=== PATIENT | female | born 1955 | race Two or more races ===

== ENCOUNTER 2021-04-29 17:11 | Emergency (ER) | payer MEDICARE, OTHER ==
[~2021-04-29] VITALS: Ht 154.9 cm; Wt 64.9 kg
[~2021-04-29 17:11] MED LIST: ATOR40TA PO; Aspir 8181 MG PO; CYCL10 PO; DIABETES MED; DIPH25; Flagyl500 MG PO; GABA400 PO; HTN MED; HYDACE5 PO; IBUP600 PO; IBUP800 PO; Levaquin750 MG PO; Loratadine10 MG PO; METF500 PO; MIRT30 PO; NAPR550 PO; PIOG30 PO; PROM25 PO; Percocet 5-3251 EACH PO; RXCYCL10 PO; RXHYDACE PO; RXNAPNA550 PO; SEROQUEL; TRAZ100; TRAZ150T57 PO; TRAZ50; TRAZADONE; WELLBUTRIN; XARELTO15 MG PO; ZESTRIL40 M1 PO; [UNRECOGNIZED DRUG - REMARK]
[2021-04-29 18:17] LABS: BASOPHILS ABSOLUTE AUTO 0.04 K/mm3 (0.00-0.23); BASOPHILS PERCENT AUTO 1 % (0-2); EOSINOPHILS PERCENT AUTO 5 % (0-6); Hematocrit 37.3 % (33.0-51.0); Hemoglobin 12.7 g/dL (11.5-16.0); IMMATURE GRAN ABSOLUTE AUTO 0.01 K/mm3 (0.00-0.10); IMMATURE GRAN PERCENT AUTO 0 % (0-1); LYMPHOCYTES ABSOLUTE AUTO 2.48 K/mm3 (0.84-5.20); LYMPHOCYTES PERCENT AUTO 32 % (21-46); MONOCYTES ABSOLUTE AUTO 0.65 K/mm3 (0.16-1.47); MONOCYTES PERCENT AUTO 8 % (4-13); Mean Corpuscular HGB 30.2 pg (26.0-34.0); Mean Corpuscular Volume 89 fL (80-100); Mean Platelet Volume 8.9 fL (9.1-12.4); NEUTROPHILS ABSOLUTE AUTO 4.13 K/mm3 (1.96-9.15); NEUTROPHILS PERCENT AUTO 54 % (41-73); Platelet Count 234 K/mm3 (150-400); RDW Coefficient Variation 13.3 % (11.7-14.2); RDW Standard Deviation 43.6 fL (35.1-46.3); White Blood Cell Count 7.71 K/mm3 (4.00-11.30)
[2021-04-29 18:40] LABS: Bilirubin, Total 0.4 mg/dL (0.1-1.0); Bun/Creatinine Ratio 37.3 (12.0-20.0); Calcium, Blood 10.1 mg/dL (8.5-10.1); Creatinine, Blood 0.97 mg/dL (0.40-1.00); Globulin, Blood 4.1 g/dL (2.2-4.0); Potassium, Blood 5.3 mmol/L (3.5-5.5); Total Protein, Blood 8.1 g/dL (6.4-8.2)
[2021-04-29 20:15] LABS: Source, Urine Clean Catch
[2021-04-29 20:18] LABS: Bilirubin, Urine Neg (Neg); Blood, Urine 1+ (Neg); Color, Urine Yellow (P-Yellow); Glucose Qualitative, Urine Neg (Neg); Ketones, Urine Neg (Neg); Leukocyte Esterase, Urine 2+ (Neg); Nitrite, Urine Neg (Neg); Protein, Urine 1+ (Neg); Urobilinogen, Urine NORM (Normal)
[2021-04-29 20:24] LABS: Appearance, Urine Hazy (Clear)
[2021-04-29 20:25] LABS: Red Blood Cells, Urine 0-2 /hpf (0-2)
[2021-04-29 20:26] LABS: Bacteria Many /hpf; Squamous Epithelial Cells Rare /hpf (Few)
[2021-04-30] MEDS ORDERED: SERT50 PO (01:09)
[2021-04-30] MEDS ORDERED: TRAZ50 PO (01:12)
[2021-04-30 01:47] LABS: Influenza A, PCR NEGATIVE (NEGATIVE); Influenza B, PCR NEGATIVE (NEGATIVE); Resp Syncytial Virus, PCR NEGATIVE (NEGATIVE); SARS-Cov-2 (COVID-19) PCR, MMC NEGATIVE (NEGATIVE)
== END 2021-04-30 04:00 | disposition short-term general hospital (02) ==
LOC: ER 17:11
PROVIDERS: Physician Assistant; Student in an Organized Health Care Education/Training Program
DX: K85.90 Acute pancreatitis without necrosis or infection, unspecified (principal); K80.50 Calculus of bile duct without cholangitis or cholecystitis without obstruction; I44.7 Left bundle-branch block, unspecified; K44.9 Diaphragmatic hernia without obstruction or gangrene; K57.30 Diverticulosis of large intestine without perforation or abscess without bleeding; R42 Dizziness and giddiness; E11.9 Type 2 diabetes mellitus without complications; I10 Essential (primary) hypertension; Z79.82 Long term (current) use of aspirin; Z79.84 Long term (current) use of oral hypoglycemic drugs; Z79.899 Other long term (current) drug therapy; Z88.0 Allergy status to penicillin
CPT/HCPCS: 0241U; 36415; 70450; 74177; 80053; 81001; 83690; 85025; 93005; 93010; J0780; J2270; J2405; J2765; J7120; Q9967

== ENCOUNTER 2021-07-22 09:39 | Emergency (ER) | payer MEDICARE, OTHER ==
[~2021-07-22] VITALS: Ht 154.9 cm; Wt 68.0 kg
[~2021-07-22 09:39] MED LIST changes: +SERT50 PO; +TRAZ50 PO
[2021-07-22 10:33] LABS: BASOPHILS ABSOLUTE AUTO 0.06 K/mm3 (0.00-0.23); BASOPHILS PERCENT AUTO 1 % (0-2); EOSINOPHILS ABSOLUTE AUTO 0.44 K/mm3 (0.00-0.68); EOSINOPHILS PERCENT AUTO 5 % (0-6); Hematocrit 32.4 % (33.0-51.0); Hemoglobin 10.8 g/dL (11.5-16.0); IMMATURE GRAN ABSOLUTE AUTO 0.02 K/mm3 (0.00-0.10); IMMATURE GRAN PERCENT AUTO 0 % (0-1); LYMPHOCYTES ABSOLUTE AUTO 1.39 K/mm3 (0.84-5.20); LYMPHOCYTES PERCENT AUTO 17 % (21-46); MONOCYTES ABSOLUTE AUTO 0.78 K/mm3 (0.16-1.47); MONOCYTES PERCENT AUTO 9 % (4-13); Mean Corpuscular HGB 30.4 pg (26.0-34.0); Mean Corpuscular HGB Conc 33.3 g/dL (31.5-36.5); Mean Corpuscular Volume 91 fL (80-100); Mean Platelet Volume 8.7 fL (9.1-12.4); NEUTROPHILS ABSOLUTE AUTO 5.74 K/mm3 (1.96-9.15); NEUTROPHILS PERCENT AUTO 68 % (41-73); Platelet Count 188 K/mm3 (150-400); RDW Standard Deviation 42.6 fL (35.1-46.3); Red Blood Cell Count 3.55 M/mm3 (3.80-5.20); White Blood Cell Count 8.43 K/mm3 (4.00-11.30)
[2021-07-22 10:45] LABS: Source, Urine Clean Catch
[2021-07-22 10:47] LABS: Albumin, Blood 3.4 g/dL (3.4-5.0); Albumin/Globulin Ratio 0.9 (0.8-1.8); Bilirubin, Total 0.4 mg/dL (0.1-1.0); Bun/Creatinine Ratio 19.2 (12.0-20.0); Calcium, Blood 9.2 mg/dL (8.5-10.1); Creatinine, Blood 0.99 mg/dL (0.40-1.00); Globulin, Blood 3.9 g/dL (2.2-4.0); Potassium, Blood 4.6 mmol/L (3.5-5.5); Total Protein, Blood 7.3 g/dL (6.4-8.2)
[2021-07-22 11:25] LABS: Appearance, Urine Hazy (Clear); Bilirubin, Urine Neg (Neg); Blood, Urine 1+ (Neg); Color, Urine Yellow (P-Yellow); Glucose Qualitative, Urine Neg (Neg); Ketones, Urine Neg (Neg); Leukocyte Esterase, Urine Neg (Neg); Nitrite, Urine Neg (Neg); Protein, Urine Neg (Neg); Urobilinogen, Urine NORM (Normal)
[2021-07-22 11:54] LABS: Bacteria Many /hpf; Squamous Epithelial Cells Rare /hpf (Few)
[2021-07-22] MEDS ORDERED: VRAYLAR3 MG PO (13:18)
[2021-07-22] MEDS ORDERED: ACET325 PO (14:34)
[2021-07-22] MEDS ORDERED: IBUP400 PO (14:34)
[2021-07-22] MEDS ORDERED: LEVO750 PO (14:34)
[2021-07-22] MEDS ORDERED: METR500 PO (14:34)
[2021-07-22] MEDS ORDERED: OXYC5 PO (14:46)
== END 2021-07-22 14:50 | disposition home or self-care (01) ==
LOC: ER 09:39
PROVIDERS: Emergency Medicine; Student in an Organized Health Care Education/Training Program
DX: K57.32 Diverticulitis of large intestine without perforation or abscess without bleeding (principal); M25.511 Pain in right shoulder; M25.512 Pain in left shoulder; G89.29 Other chronic pain; Z88.0 Allergy status to penicillin; Z79.84 Long term (current) use of oral hypoglycemic drugs; Z79.899 Other long term (current) drug therapy; E11.9 Type 2 diabetes mellitus without complications; I10 Essential (primary) hypertension
CPT/HCPCS: 36415; 74177; 80053; 81001; 82248; 83690; 85025; 87086; 96374; 96375; 99284-25; A9270; J1885; J2270; J2405; J7030; Q9967

== ENCOUNTER → 2021-08-27 | Outpatient (CLI) | payer MEDICARE, OTHER ==
[~2021-08-27] MED LIST changes: +ACET325 PO; +IBUP400 PO; +LEVO750 PO; +METR500 PO; +OXYC5 PO; +VRAYLAR3 MG PO
[2021-08-27 18:04] LABS: U Amphetamine Screen Not Detected; U Barbituate Screen Not Detected; U Benzodiazapine Screen Not Detected; U Buprenorphine Screen Not Detected; U Cannabinoids Screen Not Detected; U Cocaine Screen Not Detected; U Methadone Screen Not Detected; U Methamphetamine Screen Not Detected; U Opiates Screen DETECTED; U Oxycodone Screen Not Detected; U Phencyclidine Screen Not Detected; U Propoxyphene Screen Not Detected
== END | disposition home or self-care (01) ==
LOC: LAB SHORT 15:30
PROVIDERS: Family Medicine
DX: Z51.81 Encounter for therapeutic drug level monitoring (principal); Z79.899 Other long term (current) drug therapy

== ENCOUNTER 2021-09-02 11:29 | Emergency (ER) | payer MEDICARE, OTHER ==
[~2021-09-02] VITALS: Ht 154.9 cm; Wt 68.0 kg
[2021-09-02 12:29] LABS: BASOPHILS ABSOLUTE AUTO 0.06 K/mm3 (0.00-0.23); BASOPHILS PERCENT AUTO 1 % (0-2); EOSINOPHILS ABSOLUTE AUTO 0.28 K/mm3 (0.00-0.68); EOSINOPHILS PERCENT AUTO 3 % (0-6); Hematocrit 38.3 % (33.0-51.0); Hemoglobin 12.8 g/dL (11.5-16.0); IMMATURE GRAN ABSOLUTE AUTO 0.04 K/mm3 (0.00-0.10); IMMATURE GRAN PERCENT AUTO 0 % (0-1); LYMPHOCYTES ABSOLUTE AUTO 1.85 K/mm3 (0.84-5.20); LYMPHOCYTES PERCENT AUTO 17 % (21-46); MONOCYTES ABSOLUTE AUTO 0.62 K/mm3 (0.16-1.47); MONOCYTES PERCENT AUTO 6 % (4-13); Mean Corpuscular HGB 30.6 pg (26.0-34.0); Mean Corpuscular HGB Conc 33.4 g/dL (31.5-36.5); Mean Corpuscular Volume 92 fL (80-100); Mean Platelet Volume 9.2 fL (9.1-12.4); NEUTROPHILS ABSOLUTE AUTO 7.94 K/mm3 (1.96-9.15); NEUTROPHILS PERCENT AUTO 74 % (41-73); Platelet Count 251 K/mm3 (150-400); RDW Coefficient Variation 12.5 % (11.7-14.2); RDW Standard Deviation 42.4 fL (35.1-46.3); Red Blood Cell Count 4.18 M/mm3 (3.80-5.20); White Blood Cell Count 10.79 K/mm3 (4.00-11.30)
[2021-09-02 12:59] LABS: Albumin, Blood 3.7 g/dL (3.4-5.0); Albumin/Globulin Ratio 0.9 (0.8-1.8); Bilirubin, Total 0.3 mg/dL (0.1-1.0); Bun/Creatinine Ratio 23.8 (12.0-20.0); Calcium, Blood 9.6 mg/dL (8.5-10.1); Creatinine, Blood 1.01 mg/dL (0.40-1.00); Potassium, Blood 4.7 mmol/L (3.5-5.5); Total Protein, Blood 7.7 g/dL (6.4-8.2)
[2021-09-02 16:20] LABS: Source, Urine Clean Catch
[2021-09-02 16:29] LABS: Bilirubin, Urine Neg (Neg); Blood, Urine 2+ (Neg); Glucose Qualitative, Urine Neg (Neg); Ketones, Urine Neg (Neg); Leukocyte Esterase, Urine 1+ (Neg); Nitrite, Urine Neg (Neg); Protein, Urine Neg (Neg); Urobilinogen, Urine NORM (Normal)
[2021-09-02 16:33] LABS: Appearance, Urine Clear (Clear); Color, Urine Pale Yellow (P-Yellow)
[2021-09-02 16:34] LABS: Bacteria Few /hpf; Squamous Epithelial Cells Few /hpf (Few)
[2021-09-02] MEDS ORDERED: LEVFLO500 PO (17:14)
[2021-09-02] MEDS ORDERED: HYDR1TAB94 PO (17:14)
[2021-09-02] MEDS ORDERED: Flagyl500 MG PO (17:14)
== END 2021-09-02 17:27 | disposition home or self-care (01) ==
LOC: ER 11:29
PROVIDERS: Emergency Medicine; Physician Assistant
DX: R10.32 Left lower quadrant pain (principal); E11.9 Type 2 diabetes mellitus without complications; Z87.891 Personal history of nicotine dependence; Z88.0 Allergy status to penicillin; Z79.899 Other long term (current) drug therapy
CPT/HCPCS: 36415; 80053; 81001; 83690; 85025; 87086; 96374; 99284-25; A9270; J1885

== ENCOUNTER → 2021-11-23 | Outpatient (CLI) | payer MEDICARE, OTHER ==
[~2021-11-23] MED LIST changes: +HYDR1TAB94 PO; +LEVFLO500 PO; +NITR100CA PO; +OXYCODONE-ACET1 EAC2 PO
[2021-11-23 16:55] LABS: U Amphetamine Screen Not Detected; U Barbituate Screen Not Detected; U Benzodiazapine Screen Not Detected; U Buprenorphine Screen Not Detected; U Cannabinoids Screen Not Detected; U Cocaine Screen Not Detected; U Methadone Screen Not Detected; U Methamphetamine Screen Not Detected; U Opiates Screen Not Detected; U Oxycodone Screen Not Detected; U Phencyclidine Screen Not Detected; U Propoxyphene Screen Not Detected
== END | disposition home or self-care (01) ==
LOC: LAB 15:31 → LAB SHORT 15:31
PROVIDERS: Family Medicine
DX: Z51.81 Encounter for therapeutic drug level monitoring (principal); Z79.899 Other long term (current) drug therapy

== ENCOUNTER → 2021-12-04 | Outpatient (CLI) | payer MEDICARE, OTHER ==
[2021-12-04 21:07] LABS: U Amphetamine Screen Not Detected; U Barbituate Screen Not Detected; U Benzodiazapine Screen Not Detected; U Buprenorphine Screen Not Detected; U Cannabinoids Screen Not Detected; U Cocaine Screen Not Detected; U Methadone Screen Not Detected; U Methamphetamine Screen Not Detected; U Opiates Screen Not Detected; U Oxycodone Screen DETECTED; U Phencyclidine Screen Not Detected; U Propoxyphene Screen Not Detected
== END | disposition home or self-care (01) ==
LOC: LAB 17:56 → LAB SHORT 17:56
PROVIDERS: Family Medicine
DX: Z51.81 Encounter for therapeutic drug level monitoring (principal); Z79.899 Other long term (current) drug therapy

== ENCOUNTER → 2022-02-01 | Outpatient (CLI) | payer MEDICARE, OTHER ==
[~2022-02-01] MED LIST changes: +CIPR500 PO
[2022-02-01 16:03] LABS: U Amphetamine Screen Not Detected; U Barbituate Screen Not Detected; U Benzodiazapine Screen Not Detected; U Buprenorphine Screen Not Detected; U Cannabinoids Screen Not Detected; U Cocaine Screen Not Detected; U Methadone Screen Not Detected; U Methamphetamine Screen Not Detected; U Opiates Screen Not Detected; U Oxycodone Screen DETECTED; U Phencyclidine Screen Not Detected; U Propoxyphene Screen Not Detected
== END | disposition home or self-care (01) ==
LOC: LAB SHORT 10:20 → LAB 10:20
PROVIDERS: Family Medicine
DX: Z51.81 Encounter for therapeutic drug level monitoring (principal); Z79.899 Other long term (current) drug therapy

== ENCOUNTER → 2022-04-14 | Outpatient (CLI) | payer MEDICARE, OTHER ==
[2022-04-14 17:56] LABS: BASOPHILS ABSOLUTE AUTO 0.06 K/mm3 (0.00-0.23); BASOPHILS PERCENT AUTO 1 % (0-2); EOSINOPHILS ABSOLUTE AUTO 0.69 K/mm3 (0.00-0.68); EOSINOPHILS PERCENT AUTO 9 % (0-6); Hematocrit 35.6 % (33.0-51.0); Hemoglobin 11.9 g/dL (11.5-16.0); IMMATURE GRAN ABSOLUTE AUTO 0.03 K/mm3 (0.00-0.10); IMMATURE GRAN PERCENT AUTO 0 % (0-1); LYMPHOCYTES ABSOLUTE AUTO 2.61 K/mm3 (0.84-5.20); LYMPHOCYTES PERCENT AUTO 34 % (21-46); MONOCYTES ABSOLUTE AUTO 0.48 K/mm3 (0.16-1.47); MONOCYTES PERCENT AUTO 6 % (4-13); Mean Corpuscular HGB Conc 33.4 g/dL (31.5-36.5); Mean Corpuscular Volume 87 fL (80-100); Mean Platelet Volume 9.7 fL (9.1-12.4); NEUTROPHILS ABSOLUTE AUTO 3.83 K/mm3 (1.96-9.15); NEUTROPHILS PERCENT AUTO 50 % (41-73); Platelet Count 213 K/mm3 (150-400); RDW Standard Deviation 40.7 fL (35.1-46.3)
[2022-04-14 18:35] LABS: Albumin, Blood 3.5 g/dL (3.4-5.0); Alk Phos 62 U/L (50-136); Anion Gap 5 mmol/L (6-16); Aspartate Aminotrans (AST/SGOT 27 U/L (12-37); Bilirubin, Total 0.2 mg/dL (0.1-1.0); Blood Urea Nitrogen 26 mg/dL (8-24); CHOL/HDL RATIO 3.9; CO2, Blood 22 mmol/L (21-32); Calcium, Blood 9.1 mg/dL (8.5-10.1); Chloride, Blood 109 mmol/L (98-108); Cholesterol 168 mg/dL (50-200); Free Thyroxine 0.86 ng/dL (0.70-1.60); Globulin, Blood 3.6 g/dL (2.2-4.0); Glucose, Blood 134 mg/dL (70-99); HDL Cholesterol 43 mg/dL (>39); LDL/HDL RATIO 1.9; Low Density Lipoprotein Chol 82 mg/dL (0-110); Potassium, Blood 4.2 mmol/L (3.5-5.5); Sodium, Blood 136 mmol/L (136-145); Total Protein, Blood 7.1 g/dL (6.4-8.2); Triglycerides 213 mg/dL (30-160); Very Low Density Lipoprot Chol 42 mg/dL (6-32)
[2022-04-14 18:44] LABS: Alanine Aminotransfer (ALT/SGP 36 U/L (12-78); Bun/Creatinine Ratio 21.7 (12.0-20.0); Glomerular Filtration Rate 50 (60-)
== END | disposition home or self-care (01) ==
LOC: LAB 14:30 → LAB SHORT 14:30
PROVIDERS: Family Medicine
DX: K57.92 Diverticulitis of intestine, part unspecified, without perforation or abscess without bleeding (principal); E78.5 Hyperlipidemia, unspecified; R73.9 Hyperglycemia, unspecified
CPT/HCPCS: 80053; 80061; 83036; 84439; 84443; 85025

== ENCOUNTER → 2022-06-15 | Outpatient (CLI) | payer MEDICARE, OTHER ==
[2022-06-15 18:53] LABS: BASOPHILS ABSOLUTE AUTO 0.07 K/mm3 (0.00-0.23); BASOPHILS PERCENT AUTO 1 % (0-2); EOSINOPHILS ABSOLUTE AUTO 0.42 K/mm3 (0.00-0.68); EOSINOPHILS PERCENT AUTO 5 % (0-6); Hematocrit 39.7 % (33.0-51.0); Hemoglobin 13.1 g/dL (11.5-16.0); IMMATURE GRAN ABSOLUTE AUTO 0.03 K/mm3 (0.00-0.10); IMMATURE GRAN PERCENT AUTO 0 % (0-1); LYMPHOCYTES ABSOLUTE AUTO 2.53 K/mm3 (0.84-5.20); LYMPHOCYTES PERCENT AUTO 30 % (21-46); MONOCYTES ABSOLUTE AUTO 0.63 K/mm3 (0.16-1.47); MONOCYTES PERCENT AUTO 8 % (4-13); Mean Corpuscular HGB 29.6 pg (26.0-34.0); Mean Corpuscular Volume 90 fL (80-100); Mean Platelet Volume 9.7 fL (9.1-12.4); NEUTROPHILS ABSOLUTE AUTO 4.64 K/mm3 (1.96-9.15); NEUTROPHILS PERCENT AUTO 56 % (41-73); Platelet Count 250 K/mm3 (150-400); RDW Coefficient Variation 13.9 % (11.7-14.2); RDW Standard Deviation 45.7 fL (35.1-46.3); Red Blood Cell Count 4.42 M/mm3 (3.80-5.20); White Blood Cell Count 8.32 K/mm3 (4.00-11.30)
[2022-06-15 21:40] LABS: Albumin, Blood 3.9 g/dL (3.4-5.0); Bilirubin, Total 0.4 mg/dL (0.1-1.0); Calcium, Blood 9.5 mg/dL (8.5-10.1); Creatinine, Blood 1.11 mg/dL (0.40-1.00); Potassium, Blood 4.8 mmol/L (3.5-5.5); Total Protein, Blood 7.9 g/dL (6.4-8.2)
== END | disposition home or self-care (01) ==
LOC: LAB SHORT 15:00 → LAB 15:00
PROVIDERS: Physician Assistant
DX: R07.9 Chest pain, unspecified (principal)
CPT/HCPCS: 80053; 85025

== ENCOUNTER → 2022-07-08 | Outpatient (CLI) | payer MEDICARE, OTHER | END | disposition home or self-care (01) | LOC: LAB 10:07 → LAB SHORT 10:07 | DX: K14.0 Glossitis (principal) | CPT/HCPCS: 82607; 82746 ==

== ENCOUNTER 2022-07-21 10:47 | Day surgery (SDC) | payer MEDICARE, OTHER ==
[~2022-07-21] VITALS: Ht 154.9 cm; Wt 67.5 kg
[2022-07-21] MEDS ORDERED: ONDA4 (12:24)
--- NOTE | 2022-07-21 12:51 | NUR ---
07/21/22 1251 MAYA HARRIS TWO ATTEMPTS AT IV. FIRST ATTEMPT IN R HAND BY JARETT VILLEDA. SECOND ATTEMPT IN L HAND SUCESSFUL.
== END 2022-07-21 14:30 | disposition home or self-care (01) ==
LOC: ORSCSDS 10:47
PROVIDERS: Internal Medicine Gastroenterology
PROC: 0DB78ZX Excision of Stomach, Pylorus, Via Natural or Artificial Opening Endoscopic, Diagnostic (ICD-10-PCS; principal; 2022-07-21 12:15)
PROC: 0DBN8ZX Excision of Sigmoid Colon, Via Natural or Artificial Opening Endoscopic, Diagnostic (ICD-10-PCS; principal; 2022-07-21 12:15)
PROC: 0DB58ZX Excision of Esophagus, Via Natural or Artificial Opening Endoscopic, Diagnostic (ICD-10-PCS; principal; 2022-07-21 12:15)
DX: R10.9 Unspecified abdominal pain (principal); R14.0 Abdominal distension (gaseous); R93.3 Abnormal findings on diagnostic imaging of other parts of digestive tract; K57.32 Diverticulitis of large intestine without perforation or abscess without bleeding; K29.70 Gastritis, unspecified, without bleeding; E11.9 Type 2 diabetes mellitus without complications; Z79.84 Long term (current) use of oral hypoglycemic drugs; Z79.899 Other long term (current) drug therapy
CPT/HCPCS: 82947; 88305; 88341; 88342; J2250; J2704; J7120

== ENCOUNTER → 2023-04-11 | Outpatient (CLI) | payer MEDICARE, OTHER ==
[~2023-04-11] MED LIST changes: +ONDA4
== END | disposition home or self-care (01) ==
LOC: LAB 16:26 → LAB SHORT 16:26
DX: N39.0 Urinary tract infection, site not specified (principal)
CPT/HCPCS: 87077; 87086; 87186

== ENCOUNTER 2023-07-19 19:51 | Emergency (ER) | payer MEDICARE, OTHER ==
[~2023-07-19] VITALS: Ht 154.9 cm; Wt 70.3 kg
[2023-07-19] MEDS ORDERED: Ketorolac Tromethamine 15mg Vial IV ONE (20:30)
[2023-07-19 20:32] LABS: Source, Urine Fem Cath
[2023-07-19 20:35] LABS: BASOPHILS ABSOLUTE AUTO 0.05 K/mm3 (0.00-0.23); BASOPHILS PERCENT AUTO 1 % (0-2); EOSINOPHILS ABSOLUTE AUTO 0.32 K/mm3 (0.00-0.68); EOSINOPHILS PERCENT AUTO 4 % (0-6); Hematocrit 33.6 % (33.0-51.0); Hemoglobin 11.5 g/dL (11.5-16.0); IMMATURE GRAN ABSOLUTE AUTO 0.02 K/mm3 (0.00-0.10); IMMATURE GRAN PERCENT AUTO 0 % (0-1); LYMPHOCYTES ABSOLUTE AUTO 3.18 K/mm3 (0.84-5.20); LYMPHOCYTES PERCENT AUTO 39 % (21-46); MONOCYTES ABSOLUTE AUTO 0.59 K/mm3 (0.16-1.47); MONOCYTES PERCENT AUTO 7 % (4-13); Mean Corpuscular HGB 29.6 pg (26.0-34.0); Mean Corpuscular HGB Conc 34.2 g/dL (31.5-36.5); Mean Corpuscular Volume 87 fL (80-100); Mean Platelet Volume 8.9 fL (9.1-12.4); NEUTROPHILS ABSOLUTE AUTO 3.97 K/mm3 (1.96-9.15); NEUTROPHILS PERCENT AUTO 49 % (41-73); Platelet Count 212 K/mm3 (150-400); RDW Coefficient Variation 14.2 % (11.7-14.2); RDW Standard Deviation 44.6 fL (35.1-46.3); Red Blood Cell Count 3.88 M/mm3 (3.80-5.20); White Blood Cell Count 8.13 K/mm3 (4.00-11.30)
[2023-07-19 20:46] LABS: Bilirubin, Urine Neg (Neg); Blood, Urine 2+ (Neg); Glucose Qualitative, Urine Neg (Neg); Ketones, Urine Neg (Neg); Leukocyte Esterase, Urine Neg (Neg); Nitrite, Urine Pos (Neg); Protein, Urine Neg (Neg); Urobilinogen, Urine NORM (Normal)
[2023-07-19 21:01] LABS: Albumin, Blood 3.4 g/dL (3.4-5.0); Albumin/Globulin Ratio 0.9 (0.8-1.8); Bilirubin, Total 0.2 mg/dL (0.1-1.0); Bun/Creatinine Ratio 24.1 (12.0-20.0); Calcium, Blood 9.1 mg/dL (8.5-10.1); Creatinine, Blood 1.08 mg/dL (0.40-1.00); Globulin, Blood 3.8 g/dL (2.2-4.0); Potassium, Blood 4.5 mmol/L (3.5-5.5); Total Protein, Blood 7.2 g/dL (6.4-8.2)
[2023-07-19 21:02] LABS: Appearance, Urine Hazy (Clear); Color, Urine Yellow (P-Yellow)
[2023-07-19 21:03] LABS: Bacteria Many /hpf; Red Blood Cells, Urine 0-2 /hpf (0-2); Squamous Epithelial Cells Few /hpf (Few)
[2023-07-19] MEDS ORDERED: Cephalexin Monohydrate 500 MG Cap PO ONE (21:40)
[2023-07-19] MEDS ORDERED: CEPH500 PO (23:06)
[2023-07-19 23:08] VITALS: BP 129/85
== END 2023-07-19 23:14 | disposition home or self-care (01) ==
LOC: ER 19:51
PROVIDERS: Emergency Medicine
DX: N39.0 Urinary tract infection, site not specified (principal); R19.7 Diarrhea, unspecified; I10 Essential (primary) hypertension; E11.9 Type 2 diabetes mellitus without complications; F41.9 Anxiety disorder, unspecified; F32.A Depression, unspecified; Z79.84 Long term (current) use of oral hypoglycemic drugs; Z79.899 Other long term (current) drug therapy; Z88.0 Allergy status to penicillin
CPT/HCPCS: 74177; 80053; 81001; 83690; 84484; 85025; 87077; 87086; 87186; 93005; 93010; 96374-59; 99285-25; A9270; J1885; Q9967

== ENCOUNTER → 2023-08-04 | Outpatient (CLI) | payer MEDICARE, OTHER ==
[~2023-08-04] MED LIST changes: +CEPH500 PO
[2023-08-04 13:55] LABS: Source, Urine Clean Catch
[2023-08-04 18:27] LABS: Appearance, Urine Cloudy (Clear); Bilirubin, Urine Neg (Neg); Blood, Urine 4+ (Neg); Color, Urine Yellow (P-Yellow); Glucose Qualitative, Urine Neg (Neg); Ketones, Urine Neg (Neg); Leukocyte Esterase, Urine 3+ (Neg); Nitrite, Urine Neg (Neg); Protein, Urine 1+ (Neg); Urobilinogen, Urine NORM (Normal)
[2023-08-04 18:40] LABS: White Blood Cells, Urine 25-50 /hpf (0-5)
[2023-08-04 18:41] LABS: Bacteria Many /hpf; Squamous Epithelial Cells Few /hpf (Few)
[2023-08-04 18:42] LABS: Amorphous Light (0-Heavy); Granular Casts 0-2 /lpf (0); Hyaline Casts 0-2 /lpf (0-2); Transitional Epithelial Cells Rare /hpf (0-Rare)
== END | disposition home or self-care (01) ==
LOC: LAB FUT 12-04 14:50 → EDSTATUS 12-04 14:50 → LAB SHORT 13:46
PROVIDERS: Nurse Practitioner Family
DX: N39.0 Urinary tract infection, site not specified (principal)
CPT/HCPCS: 81001

== ENCOUNTER 2024-02-09 13:44 | Inpatient (IN) | payer OTHER ==
[~2024-02-09] VITALS: Ht 154.9 cm; Wt 73.7 kg
[~2024-02-09 13:44] MED LIST changes: +Cipro500 MG PO
[2024-02-09 14:32] LABS: Source, Urine Clean Catch
[2024-02-09 14:48] LABS: Albumin, Blood 3.5 g/dL (3.4-5.0); Albumin/Globulin Ratio 0.8 (0.8-1.8); Bilirubin, Total 0.7 mg/dL (0.1-1.0); Bun/Creatinine Ratio 15.7 (12.0-20.0); Calcium, Blood 9.2 mg/dL (8.5-10.1); Creatinine, Blood 1.15 mg/dL (0.40-1.00); Globulin, Blood 4.4 g/dL (2.2-4.0); Potassium, Blood 4.3 mmol/L (3.5-5.5); Total Protein, Blood 7.9 g/dL (6.4-8.2)
[2024-02-09 14:48] LABS: Appearance, Urine Hazy (Clear); Bilirubin, Urine Neg (Neg); Blood, Urine 1+ (Neg); Color, Urine Yellow (P-Yellow); Glucose Qualitative, Urine Neg (Neg); Ketones, Urine Neg (Neg); Leukocyte Esterase, Urine 2+ (Neg); Nitrite, Urine Neg (Neg); Protein, Urine Neg (Neg); Specific Gravity, Urine 1.015 (1.003-1.022); Urobilinogen, Urine NORM (Normal)
[2024-02-09 15:03] LABS: Hyaline Casts 0-2 /lpf (0-2); Red Blood Cells, Urine 0-2 /hpf (0-2); Squamous Epithelial Cells Few /hpf (Few)
[2024-02-09 15:04] LABS: Bacteria Few /hpf
[2024-02-09 17:06] LABS: BASOPHILS PERCENT AUTO 0 % (0-2); EOSINOPHILS ABSOLUTE AUTO 0.05 K/mm3 (0.00-0.68); EOSINOPHILS PERCENT AUTO 1 % (0-6); Hematocrit 22.9 % (33.0-51.0); Hemoglobin 7.3 g/dL (11.5-16.0); IMMATURE GRAN ABSOLUTE AUTO 0.02 K/mm3 (0.00-0.10); IMMATURE GRAN PERCENT AUTO 0 % (0-1); LYMPHOCYTES ABSOLUTE AUTO 0.72 K/mm3 (0.84-5.20); LYMPHOCYTES PERCENT AUTO 16 % (21-46); MONOCYTES ABSOLUTE AUTO 0.37 K/mm3 (0.16-1.47); MONOCYTES PERCENT AUTO 8 % (4-13); Mean Corpuscular HGB 31.6 pg (26.0-34.0); Mean Corpuscular HGB Conc 31.9 g/dL (31.5-36.5); Mean Corpuscular Volume 99 fL (80-100); Mean Platelet Volume 9.9 fL (9.1-12.4); NEUTROPHILS ABSOLUTE AUTO 3.42 K/mm3 (1.96-9.15); NEUTROPHILS PERCENT AUTO 75 % (41-73); Platelet Count 105 K/mm3 (150-400); RDW Coefficient Variation 14.4 % (11.7-14.2); RDW Standard Deviation 51.9 fL (35.1-46.3); Red Blood Cell Count 2.31 M/mm3 (3.80-5.20); White Blood Cell Count 4.58 K/mm3 (4.00-11.30)
[2024-02-09] MEDS ORDERED: MetroNIDAZOLE 500 MG Tab PO ONE (18:25)
[2024-02-09] MEDS ORDERED: Morphine Sulfate 4 MG/1 ML Injection IV ONE (18:25)
[2024-02-09] MEDS ORDERED: NS 1,000 ML IV SCH ×2 (18:25→19:25)
[2024-02-09] MEDS ORDERED: Ciprofloxacin 500 MG Tab PO ONE (18:25)
[2024-02-09] MEDS ORDERED: Ondansetron HCl 2 MG / ML 2ML Vial IV PRN (19:20)
[2024-02-09] MEDS ORDERED: FentaNYL Citrate 50 MCG/ML 2 ML Injection IV PRN ×2 (19:20→19:25)
[2024-02-09] MEDS ORDERED: Morphine Sulfate 4 MG/1 ML Injection IV PRN (19:20)
[2024-02-09] MEDS ORDERED: FentaNYL Citrate 50 MCG/ML 2 ML Injection IV ONE (20:00)
[2024-02-09] MEDS ORDERED: CefTRIAXone Sodium 1,000 MG in NS 100 ML IV SCH (20:00)
[2024-02-09] MEDS ORDERED: Pantoprazole Sodium 40 MG Injection IV ONE (20:00)
[2024-02-09] MEDS ORDERED: Ondansetron HCl 2 MG / ML 2ML Vial ONE (20:18)
[2024-02-09 20:29] LABS: Hematocrit 32.4 % (33.0-51.0); Hemoglobin 11.1 g/dL (11.5-16.0)
[2024-02-09] MEDS ORDERED: TraZODone HCl 100 MG Tab PO SCH (21:00)
[2024-02-09 21:16] VITALS: BP 132/82
--- NOTE | 2024-02-09 23:14 | NUR ---
ER ADMIT- Patient arrived from ER at 2044 in no apparent distress. Ambulating independently to the bathroom. Tolerating clear liquids until midnight then NPO for surgical eval for possible EGD to r/o upper GIB. Non tele, VSS on RA. Continuous pulsox in place due to IV fentanyl administration for pain relief. NS running at 100/hr, IV antbiotics being given for acute diverticulitis flare up. Q4h hgb checks improved from 7.2 to 11.1. No signs of bleeding at this time, patient has not had a BM. Q6h BGL checks due to history of DM2 and NPO status. A&Ox4, pleasant.
[2024-02-10] MEDS ORDERED: MetroNIDAZOLE 500MG/NS 100 ml 100 ML IV SCH
[2024-02-10] MEDS ORDERED: Insulin Human Lispro 100 Units/ML 3ML Syringe SC SCH
[2024-02-10 00:55] LABS: Hematocrit 31.1 % (33.0-51.0); Hemoglobin 10.5 g/dL (11.5-16.0)
[2024-02-10 04:07] VITALS: BP 120/65
[2024-02-10 04:44] LABS: Hematocrit 30.7 % (33.0-51.0); Hemoglobin 10.3 g/dL (11.5-16.0); Mean Corpuscular HGB 30.2 pg (26.0-34.0); Mean Corpuscular HGB Conc 33.6 g/dL (31.5-36.5); Mean Platelet Volume 8.9 fL (9.1-12.4); Platelet Count 182 K/mm3 (150-400); RDW Coefficient Variation 13.9 % (11.7-14.2); RDW Standard Deviation 45.7 fL (35.1-46.3); Red Blood Cell Count 3.41 M/mm3 (3.80-5.20); White Blood Cell Count 8.04 K/mm3 (4.00-11.30)
[2024-02-10 04:55] LABS: Mean Corpuscular Volume 90 fL (80-100)
[2024-02-10 05:23] LABS: Albumin, Blood 2.9 g/dL (3.4-5.0); Albumin/Globulin Ratio 0.8 (0.8-1.8); Bilirubin, Total 0.5 mg/dL (0.1-1.0); Bun/Creatinine Ratio 13.2 (12.0-20.0); Calcium, Blood 8.7 mg/dL (8.5-10.1); Creatinine, Blood 1.06 mg/dL (0.40-1.00); Globulin, Blood 3.7 g/dL (2.2-4.0); Magnesium, Blood 1.9 mg/dL (1.6-2.4); Potassium, Blood 4.1 mmol/L (3.5-5.5); Total Protein, Blood 6.6 g/dL (6.4-8.2)
[2024-02-10] MEDS ORDERED: Pantoprazole Sodium 40 MG Injection IV SCH (06:00)
--- NOTE | 2024-02-10 06:54 | NUR ---
SHIFT SUMMARY- PATIENT NPO SINCE MIDNIGHT PENDING SURGICAL CONSULT THIS AM DUE TO HER DIVERTICULITS. ALSO R/O GIB DUE TO MELENA, POSSIBLE EGD TODAY. PATIENT HAS BEEN RECEIVING PRN FENTANYL FOR PAIN WHICH SHE SAYS PROVIDES MINIMAL RELIEF HER FOR ABDOMINAL PAIN. PATIENT GETTING OOB INDEPENDENTLY TO THE BATHROOM. DENIED NAUSEA THIS SHIFT. VSS ON RA. NON-TELE.
[2024-02-10 08:07] VITALS: BP 113/63
[2024-02-10 08:55] LABS: Hematocrit 28.9 % (33.0-51.0); Hemoglobin 9.9 g/dL (11.5-16.0)
[2024-02-10] MEDS ORDERED: Sertraline HCl 50 MG Tab PO SCH (09:00)
[2024-02-10] MEDS ORDERED: HYDROmorphone HCl/Pf 1MG SYR IV PRN (09:15)
[2024-02-10 11:28] VITALS: BP 108/64
[2024-02-10 15:47] VITALS: BP 110/58
--- NOTE | 2024-02-10 17:51 | NUR ---
SHIFT SUMMARY PT A/OX 4 AND COOPERATIVE OF CARE. PT ABLE TO EXPRESS NEEDS AND CALLS APPROPIATE. PT INDEPENDENT IN ROOM AND BED. VSS THROGHOUT SHIFT WITH O2 SATS IN THE 90'S ON RA. NO REPORT OF CHEST PAIN/PRESSURE THROUGHOUT SHIFT. NO REPORT OF SOB/DYSPNEA THROPUGHOUT SHIFT. PT REPORTED PAIN OF ABD, IV DILAUDID ORDERED. PT ENDORSED NAUSEA PERIODICALLY DURING SHIFT, TREATED PER EMAR. PT REPORTED "I HAVE TO BURN AFTER DRINKING THE BROTH EVERYTIME. AND WHEN I BURP I FEEL LIKE I'M GOING TO VOMIT." SURGEON TO SEE PT TODAY, SEE SURGEON NOTE.
[2024-02-10 20:00] VITALS: BP 121/74
[2024-02-11] VITALS: BP 125/66
[2024-02-11] MEDS ORDERED: Acetaminophen 325 MG TABLET PO PRN (03:45)
[2024-02-11 04:00] VITALS: BP 130/67
[2024-02-11 04:38] LABS: Hematocrit 30.6 % (33.0-51.0); Hemoglobin 10.2 g/dL (11.5-16.0); Mean Corpuscular HGB 30.3 pg (26.0-34.0); Mean Corpuscular HGB Conc 33.3 g/dL (31.5-36.5); Mean Corpuscular Volume 91 fL (80-100); Mean Platelet Volume 8.8 fL (9.1-12.4); Platelet Count 200 K/mm3 (150-400); RDW Standard Deviation 46.9 fL (35.1-46.3); Red Blood Cell Count 3.37 M/mm3 (3.80-5.20); White Blood Cell Count 5.52 K/mm3 (4.00-11.30)
[2024-02-11 05:22] LABS: Bun/Creatinine Ratio 11.5 (12.0-20.0); Calcium, Blood 9.2 mg/dL (8.5-10.1); Creatinine, Blood 0.96 mg/dL (0.40-1.00); Potassium, Blood 4.2 mmol/L (3.5-5.5)
--- NOTE | 2024-02-11 06:15 | NUR ---
SHIFT ASSESSMENT PT A&O X4, PLEASANT. VSS; SBP 120 - 130'S, HR IN 70'S, AFEBRILE, SP02 96 - 98% ON RA. PT C/O PAIN TO ABD 8-9/10; MEDICATION AND REST PROVIDED WITH GOOD RELIEF. THIS AM PT C/O HEADACHE, TYLENOL ORDERED THEN PT DECLINED AND DID NOT WANT IT. PT INDEPENDENT TO RESTROOM, NO BM YET. OCCULT STOOL SAMPLE STILL PENDING. PT TOLERATING CL DIET AND WATER/ICE CHIPS. PT WITH ONE EPISODE OF NAUSEA THIS AM, MEDICATION PER EMAR WITH ADEQUATE RELIEF. OTHERWISE, NO ACUTE EVENTS OVERNIGHT. IVF AND ABX PER EMAR. PT ABLE TO MAKE NEEDS KNOWN, CALL LIGHT IN REACH. WILL UPDATE ONCOMING RN.
--- NOTE | 2024-02-11 08:37 | NUR ---
DR ALDRIDGE, HOSPITALIST, AT BEDSIDE FOR DAILY ROUNDS
[2024-02-11 08:52] VITALS: BP 95/56
--- NOTE | 2024-02-11 10:13 | NUR ---
ASSUMPTION OF CARE PT RESTING IN BED, ALERT AND ORIENTED X4. PT NOT ON TELEMETRY, DENIES ANY CHEST PAIN. SPO2 STABLE ON ROOM AIR. PT CONTINUES TO REPORT ABDOMINAL PAIN, MAINLY EPIGASTRIC. PT IS TOLERATING SIPS OF CLEAR LIQUIDS. Q6 CBG'S STABLE. PT DENIES ISSUES. DISCUSSED WITH DR ALDRIDGE, PLAN TO START PO PAIN MEDICATIONS AND CARAFATE TO SEE IF THAT HELPS EPIGASTRIC PAIN. CHANGE STATUS TO MEDICAL. CONTINUE TO HAVE SURGICAL CONSULT ROUND FOR POSSIBLE EGD WHILE IN HOSPITAL.
--- NOTE | 2024-02-11 10:36 | NUR ---
Dr Vallejo (surgery) to bedside for evaluation. No new oders at this time.
[2024-02-11] MEDS ORDERED: Sucralfate 1 GM Tab PO SCH (11:30)
[2024-02-11 12:06] VITALS: BP 113/74
[2024-02-11] MEDS ORDERED: OxyCODONE HCL 5 MG TAB PO PRN (15:55)
--- NOTE | 2024-02-11 17:16 | NUR ---
SHIFT SUMMARY NO ACUTE EVENTS THIS SHIFT. PT REMAINS ALERT AND ORIENTED, VITAL SIGNS STABLE. STATUS CHANGE TODAY TO MEDICAL WITH NO TELE. PO PAIN MEDICATIONS ORDERED. PT REMAINS INDEPENDENT IN ROOM, AMBULATES TO RESTROOM BUT DENIES HAVING A BOWEL MOVEMENT THIS SHIFT. PAIN CONTINUES TO BE 8-10/10 THROUGHOUT SHIFT, ADDED CARAFATE TO EMAR THIS SHIFT TO SEE IF THAT MAY HELP WITH PTS EPIGASTRIC PAIN. PT HAS RECEIVED 2 1MG DOSES OF PRN DILAUDID AND ON DOSE PRN OXYCODONE THIS SHIFT.
[2024-02-11 19:40] VITALS: BP 127/66
[2024-02-11] MEDS ORDERED: TraZODone HCl 50 MG Tab PO SCH (21:00)
[2024-02-12 02:47] VITALS: BP 136/76
--- NOTE | 2024-02-12 05:06 | NUR ---
SHIFT SUMMARY 68 YR F TRANSFERED TO MEDICAL UNIT THIS SHIFT FROM PCU. FULL CODE. NO ACUTE CHANGES THIS SHIFT. PT C/O PAIN 7-9/10 IN HER ABDOMEN. PAIN MEDS PER EMAR. SHE IS A&O X 4 AND PLEASANT AND COOPERATIVE WITH CARE. NO BM THIS SHIFT AND STOOL SAMPLE IS STILL NEEDED. CLEAR LIQUID DIET AND NS @ 100/HR. PT IS INDEPENDANT IN THE ROOM AND BED IS IN LOW POSITION WITH CALL LIGHT IN REACH. WILL CONTINUE TO MONITOR.
[2024-02-12 07:31] VITALS: BP 120/71
[2024-02-12] MEDS ORDERED: Polyethylene Glycol 3350 17 gm PO SCH (10:00)
[2024-02-12 15:31] VITALS: BP 127/85
--- NOTE | 2024-02-12 17:46 | NUR ---
SHIFT SUMMARY PT IS A/OX4 AND INDEPENDENT IN THE ROOM WITH NS @ 100 CONTINOUSLY RUNNING THOUGHOUT THE SHIFT. NO ACUTE CHANGES THROUGHOUT THE SHIFT. PT DESCRIBES 6-7 PAIN DURING THE SHIFT, MEDICATED WITH HYDROMORPHONE THROUGHOUT THE SHIFT PER MAR. THE PT HAS STILL NOT HAD A BM AND A STOOL SAMPLE IS STILL NEEDED. PT WAS CHANGED FROM A CLEAR LIQUID DIET TO A REGULAR DIET TO START TOMORROW. PT IS PLEASANT AND COORAPERATIVE WITH CARE. THE BED IS IN THE LOWEST POSITION WITH THE CALL LIGHT IN REACH.
[2024-02-12 19:20] VITALS: BP 119/67
[2024-02-12] MEDS ORDERED: Insulin Human Lispro 100 Units/ML 3ML Syringe SC SCH (21:00)
[2024-02-13 02:09] VITALS: BP 141/75
[2024-02-13 04:54] LABS: Hematocrit 30.1 % (33.0-51.0); Hemoglobin 10.3 g/dL (11.5-16.0); Mean Corpuscular HGB Conc 34.2 g/dL (31.5-36.5); Mean Corpuscular Volume 91 fL (80-100); Mean Platelet Volume 9.2 fL (9.1-12.4); Platelet Count 212 K/mm3 (150-400); RDW Coefficient Variation 13.8 % (11.7-14.2); RDW Standard Deviation 45.3 fL (35.1-46.3); Red Blood Cell Count 3.32 M/mm3 (3.80-5.20); White Blood Cell Count 5.01 K/mm3 (4.00-11.30)
[2024-02-13 05:12] LABS: Albumin, Blood 2.9 g/dL (3.4-5.0); Anion Gap 13 mmol/L (3-11); Blood Urea Nitrogen 6 mg/dL (8-24); Bun/Creatinine Ratio 6.3 (12.0-20.0); CO2, Blood 21 mmol/L (21-32); Calcium, Blood 8.6 mg/dL (8.5-10.1); Chloride, Blood 114 mmol/L (98-108); Creatinine, Blood 0.95 mg/dL (0.40-1.00); Glomerular Filtration Rate 65 (60-); Glucose, Blood 92 mg/dL (70-99); Magnesium, Blood 1.5 mg/dL (1.6-2.4); Phosphorus, Blood 2.2 mg/dL (2.5-4.9); Potassium, Blood 3.7 mmol/L (3.5-5.5); Sodium, Blood 144 mmol/L (136-145)
--- NOTE | 2024-02-13 05:42 | NUR ---
SHIFT SUMMARY: KRISTY IS A&OX4. VSS, SYSTOLIC BLOOD PRESSURE NOTED TO BE MILDLY ELEVATED THIS AM, SLIGHTLY ABOVE TREND. CONTINUOUS PULSE OX IN PLACE, MAINTAINING SATS >90% ORA. SHE REPORTS ADEQUATE PAIN MANAGEMENT WITH MEDICATIONS PER MAR. PT DID HAVE A BOWEL MOVEMENT THIS SHIFT, DENIES ANY DIFFICULTY WITH URINATION EXCEPT OCCASIONAL STRESS INCONTINENCE WHEN SHE COUGHS HARD. PULL-UPS IN PLACE. SHE IS INDEPENDENT IN THE ROOM, IV TO LEFT ARM PATENT, FLUIDS INFUSING. SHE IS TOLERATING PO INTAKE WELL. SHE IS LYING IN BED WITH THE CALL LIGHT IN REACH, BED IN LOWEST POSITION. WILL GIVE REPORT TO DAY SHIFT RN.
[2024-02-13 07:27] VITALS: BP 139/94
[2024-02-13 08:52] LABS: Stool Occult Bld Immuno 1 Negative (NEGATIVE)
[2024-02-13] MEDS ORDERED: OXYC5 PO (12:28)
[2024-02-13] MEDS ORDERED: PANT20 PO (12:29)
[2024-02-13] MEDS ORDERED: SUCR1 PO (12:29)
[2024-02-13] MEDS ORDERED: DOXY100 PO (12:29)
--- NOTE | 2024-02-13 15:32 | NUR ---
DISCHARGE PT DISCHARGED AT 1505. PT EDUCATED ON NEW MEDICATIONS AND GIVEN HARD SCRIPT. PT STATES SHE UNDERSTANDS AND WILL BE CALLING HER DR OFFICE FOR A FOLLOW UP APPOINTMENT. IV REMOVED & INTACT. PT WHEELED OUT BY AIDE & DRIVEN HOME BY FAMILY. NO CHANGES IN ASSESSMENT PRIOR TO DC. PT MEDICATED FOR ABD PAIN PRIOR TO DC.
== END 2024-02-13 15:05 | disposition home health service (06) | DRG 378 ==
LOC: ER 13:44 → PCU 19:16 → MEDS 02-11 22:50
PROVIDERS: Internal Medicine; Nurse Practitioner Acute Care; Physician Assistant; Student in an Organized Health Care Education/Training Program; ADMIT Internal Medicine
DX: K57.33 Diverticulitis of large intestine without perforation or abscess with bleeding (principal); D62 Acute posthemorrhagic anemia; I10 Essential (primary) hypertension; E11.9 Type 2 diabetes mellitus without complications; F41.9 Anxiety disorder, unspecified; F32.A Depression, unspecified; M54.9 Dorsalgia, unspecified; E78.5 Hyperlipidemia, unspecified; M19.90 Unspecified osteoarthritis, unspecified site; G89.29 Other chronic pain; Z88.0 Allergy status to penicillin; Z86.73 Personal history of transient ischemic attack (TIA), and cerebral infarction without residual deficits; Z79.84 Long term (current) use of oral hypoglycemic drugs; Z79.899 Other long term (current) drug therapy; Z90.49 Acquired absence of other specified parts of digestive tract; Z98.890 Other specified postprocedural states
CPT/HCPCS: 36415; 71046; 74177; 80048; 80053; 80069; 81001; 82274; 82947; 83735; 85014; 85018; 85025; 85027; 87086; 93005; 93010; 94760; 94762; 96361; 96374-59; 96375; 99285-25; A9270; J0696; J1170; J2270; J2405; J2470; J3010; J7030; Q9967

== ENCOUNTER → 2024-03-12 | Outpatient (CLI) | payer MEDICARE, OTHER ==
[~2024-03-12] MED LIST changes: +DOXY100 PO; +PANT20 PO; +SUCR1 PO
[2024-03-12 14:04] LABS: Source, Urine Clean Catch
[2024-03-12 18:39] LABS: Appearance, Urine Clear (Clear); Bilirubin, Urine Neg (Neg); Blood, Urine 2+ (Neg); Color, Urine Yellow (P-Yellow); Glucose Qualitative, Urine Neg (Neg); Ketones, Urine Neg (Neg); Leukocyte Esterase, Urine 3+ (Neg); Nitrite, Urine Neg (Neg); Protein, Urine 2+ (Neg); Specific Gravity, Urine 1.025 (1.003-1.022); Urobilinogen, Urine 1+ (Normal)
[2024-03-12 18:48] LABS: Bacteria Many /hpf; Squamous Epithelial Cells Few /hpf (Few); Yeast/Fungi Urine Rare /hpf
== END | disposition home or self-care (01) ==
LOC: LAB SHORT 13:34 → LAB 13:34
PROVIDERS: Nurse Practitioner Family
DX: R30.0 Dysuria (principal)
CPT/HCPCS: 81001; 87077; 87086; 87186

== ENCOUNTER 2024-08-22 16:29 | Inpatient (IN) | payer OTHER ==
[~2024-08-22] VITALS: Ht 154.9 cm; Wt 68.0 kg
[2024-08-22] MEDS ORDERED: QUETIAPINE FUM10011 PO (16:57)
[2024-08-22] MEDS ORDERED: Prinivil10 MG (16:57)
[2024-08-22] MEDS ORDERED: BUSPIRONE HCL5 M6 PO (16:57)
[2024-08-22] MEDS ORDERED: OXYCODONE-ACET1 EAC2 (16:58)
[2024-08-22 17:00] LABS: BASOPHILS ABSOLUTE AUTO 0.03 K/mm3 (0.00-0.23); BASOPHILS PERCENT AUTO 0 % (0-2); EOSINOPHILS ABSOLUTE AUTO 0.06 K/mm3 (0.00-0.68); EOSINOPHILS PERCENT AUTO 1 % (0-6); Hematocrit 33.4 % (33.0-51.0); Hemoglobin 11.5 g/dL (11.5-16.0); IMMATURE GRAN ABSOLUTE AUTO 0.04 K/mm3 (0.00-0.10); IMMATURE GRAN PERCENT AUTO 0 % (0-1); LYMPHOCYTES ABSOLUTE AUTO 0.83 K/mm3 (0.84-5.20); LYMPHOCYTES PERCENT AUTO 7 % (21-46); MONOCYTES ABSOLUTE AUTO 0.72 K/mm3 (0.16-1.47); MONOCYTES PERCENT AUTO 6 % (4-13); Mean Corpuscular HGB 30.7 pg (26.0-34.0); Mean Corpuscular HGB Conc 34.4 g/dL (31.5-36.5); Mean Corpuscular Volume 89 fL (80-100); Mean Platelet Volume 9.1 fL (9.1-12.4); NEUTROPHILS PERCENT AUTO 86 % (41-73); Platelet Count 156 K/mm3 (150-400); RDW Standard Deviation 42.5 fL (35.1-46.3); Red Blood Cell Count 3.74 M/mm3 (3.80-5.20); White Blood Cell Count 11.78 K/mm3 (4.00-11.30)
[2024-08-22] MEDS ORDERED: NS 1,000 ML IV SCH ×3 (17:00→22:00)
[2024-08-22] MEDS ORDERED: DiphenhydrAMINE HCl 50 MG/ML 1ML Vial IV ONE (17:00)
[2024-08-22] MEDS ORDERED: Prochlorperazine Edisylate 10 mg Vial IV ONE (17:00)
[2024-08-22 17:09] LABS: Albumin, Blood 3.7 g/dL (3.4-5.0); Bilirubin, Total 0.4 mg/dL (0.1-1.0); Bun/Creatinine Ratio 15.2 (12.0-20.0); Calcium, Blood 8.9 mg/dL (8.5-10.1); Creatinine, Blood 1.25 mg/dL (0.40-1.00); Globulin, Blood 3.8 g/dL (2.2-4.0); Potassium, Blood 4.4 mmol/L (3.5-5.5); Total Protein, Blood 7.5 g/dL (6.4-8.2)
[2024-08-22 17:30] LABS: Influenza A, PCR NEGATIVE (NEGATIVE); Influenza B, PCR NEGATIVE (NEGATIVE); Resp Syncytial Virus, PCR NEGATIVE (NEGATIVE); SARS-Cov-2 (COVID-19) PCR, MMC NEGATIVE (NEGATIVE)
[2024-08-22 18:32] LABS: Source, Urine Clean Catch
[2024-08-22 18:38] LABS: Appearance, Urine Clear (Clear); Bilirubin, Urine Neg (Neg); Blood, Urine 2+ (Neg); Color, Urine Yellow (P-Yellow); Glucose Qualitative, Urine Neg (Neg); Ketones, Urine Neg (Neg); Leukocyte Esterase, Urine 2+ (Neg); Nitrite, Urine Neg (Neg); Protein, Urine 1+ (Neg); Urobilinogen, Urine NORM (Normal)
[2024-08-22 18:46] LABS: Bacteria Many /hpf; Squamous Epithelial Cells Mod /hpf (Few)
[2024-08-22] MEDS ORDERED: Ciprofloxacin 400MG/D5 200ML 200 ML IV ONE (19:30)
[2024-08-22] MEDS ORDERED: Acetaminophen 500 MG Tab PO ONE (19:40)
[2024-08-22] MEDS ORDERED: FLU VACC TS2024-25(6MOS UP)/PF 45 MCG/0.5 ML SYRINGE IM ONE (21:25)
[2024-08-22] MEDS ORDERED: Ondansetron 4 MG TAB PO PRN (21:25)
[2024-08-22] MEDS ORDERED: OxyCODONE 10/Acetamin 325 TABLET PO SCH (22:00)
[2024-08-22] MEDS ORDERED: BusPIRone HCl 5 MG Tab PO SCH (22:00)
[2024-08-22] MEDS ORDERED: QUEtiapine Fumarate 100 MG Tab PO SCH (22:00)
[2024-08-22] MEDS ORDERED: BUSP5 PO (22:22)
[2024-08-22] MEDS ORDERED: LISI10 PO (22:23)
[2024-08-22] MEDS ORDERED: Percocet 10-321 EACH PO (22:24)
[2024-08-22] MEDS ORDERED: ATOR20 PO (22:26)
[2024-08-22] MEDS ORDERED: QUET100 PO (22:28)
[2024-08-22] MEDS ORDERED: SERT100 PO (22:29)
[2024-08-22] MEDS ORDERED: CefTRIAXone Sodium 1,000 MG in NS 100 ML IV SCH (22:45)
[2024-08-22 22:46] VITALS: BP 128/75
[2024-08-23 02:39] VITALS: BP 103/59
[2024-08-23] MEDS ORDERED: Magnesium Sulf 2 GM/Water 50ML 50 ML IV SCH (04:00)
[2024-08-23 05:22] LABS: BASOPHILS ABSOLUTE AUTO 0.04 K/mm3 (0.00-0.23); BASOPHILS PERCENT AUTO 0 % (0-2); EOSINOPHILS ABSOLUTE AUTO 0.01 K/mm3 (0.00-0.68); EOSINOPHILS PERCENT AUTO 0 % (0-6); Hematocrit 32.5 % (33.0-51.0); Hemoglobin 10.9 g/dL (11.5-16.0); IMMATURE GRAN ABSOLUTE AUTO 0.09 K/mm3 (0.00-0.10); IMMATURE GRAN PERCENT AUTO 1 % (0-1); LYMPHOCYTES ABSOLUTE AUTO 1.32 K/mm3 (0.84-5.20); LYMPHOCYTES PERCENT AUTO 10 % (21-46); MONOCYTES ABSOLUTE AUTO 1.01 K/mm3 (0.16-1.47); MONOCYTES PERCENT AUTO 8 % (4-13); Mean Corpuscular HGB 29.9 pg (26.0-34.0); Mean Corpuscular HGB Conc 33.5 g/dL (31.5-36.5); Mean Corpuscular Volume 89 fL (80-100); Mean Platelet Volume 9.2 fL (9.1-12.4); NEUTROPHILS ABSOLUTE AUTO 11.05 K/mm3 (1.96-9.15); NEUTROPHILS PERCENT AUTO 82 % (41-73); Platelet Count 139 K/mm3 (150-400); RDW Coefficient Variation 13.1 % (11.7-14.2); RDW Standard Deviation 43.2 fL (35.1-46.3); Red Blood Cell Count 3.64 M/mm3 (3.80-5.20); White Blood Cell Count 13.52 K/mm3 (4.00-11.30)
[2024-08-23 05:45] LABS: Albumin/Globulin Ratio 0.8 (0.8-1.8); Bilirubin, Total 0.4 mg/dL (0.1-1.0); Bun/Creatinine Ratio 13.4 (12.0-20.0); Creatinine, Blood 1.12 mg/dL (0.40-1.00); Globulin, Blood 3.8 g/dL (2.2-4.0); Potassium, Blood 4.1 mmol/L (3.5-5.5); Total Protein, Blood 6.8 g/dL (6.4-8.2)
--- NOTE | 2024-08-23 06:26 | NUR ---
SHIFT SUMMARY: Pt is admitted for sepsis and is a full code. Is alert and able to make needs known. ADLs have been SBA. denies pain or discomfort when asked. Folly in place and draining clear yellow urine. Was reported to this LN by ED nurse that she had a fever in the 104s but as high as 105.2. Was given one round of APAP in the ED. upon coming to the floor about 2240 temp was 99.0 oral. Was also reported that the pulse ranged anywhere from 130 up to about 170 from the time the reporting nurse came on. After coming to the floor pulse has been less than 120 when checked. PT has not had any SX. NS has been running into the left AC IV at 100ml/h. Folly was pulled about 0630.
[2024-08-23 07:19] VITALS: BP 129/71
--- NOTE | 2024-08-23 08:02 | NUR ---
CALLED DR RIVERA- PT HAD FULL ASSESSMENT COMPLETED THIS AM, NO NAUSEA OR PAIN NOTED AAT THE TIME OF ASSESSMENT. PT ASSISTED INTO A HOSPITAL GOWN AND HAIR WAS COMBED OUT, SHE WAS DEVELOPING TANGLES AND MATS. ABOUT 20 MINUTES LATER THE PT HAD AN EPISODE OF EMESIS LAARGE AMOUNTS REQUIRING GOWN AND LINNEN CHANGE, WELL DIARRHEA. SHE STATES SHE STILL DOES NOT FEEL NAUSEATED HOWEVER NOTES THAT HER L AC IV IS PAINFULL, MANAGER QA ATTEMPTING TO GET ADDITIONAL IV ACCESS. THE L AC IV FLUSHES WELL, COBAN WAS REMOVED FROM BELOW IT. SOME SLIGHT SWELLING NOTED.
[2024-08-23] MEDS ORDERED: CefTRIAXone Sodium 1,000 MG in NS 100 ML IV SCH (09:00)
[2024-08-23] MEDS ORDERED: Sertraline HCl 50 MG Tab PO SCH (09:00)
[2024-08-23] MEDS ORDERED: Enoxaparin 40 MG/0.4 ML SYR SC SCH (09:00)
[2024-08-23] MEDS ORDERED: Lactobacil 2-S.Thermo-Bifido 1 1 Cap PO SCH (09:00)
[2024-08-23] MEDS ORDERED: Ondansetron HCl 2 MG / ML 2ML Vial IV PRN (09:05)
[2024-08-23] MEDS ORDERED: OxyCODONE HCL 5 MG TAB PO PRN (14:05)
[2024-08-23] MEDS ORDERED: Acetaminophen/Aspirin/Caffeine 250/250/65 MG PO PRN (14:05)
[2024-08-23] MEDS ORDERED: CefTRIAXone Sodium 1,000 MG in NS 100 ML IV ONE (15:00)
[2024-08-23 16:37] VITALS: BP 130/59
--- NOTE | 2024-08-23 17:08 | NUR ---
SHIFT SUMMARY- PT ALERT, ORIENTED AND INDEPENDENT IN THE ROOM. PT HAD A C/O BACK PAIN AND A TERRIBLE HEADACHE. SPOKE TO DR RIVERA AND PT RECIEVED A DOSE OF EXCEDRIN JUST NOW. SHE CURRENTLY RATES HER HEADACHE AT 8/10. NS RUNNING AT 100ML/HR. PT HAD POSSITIVE BLOOD CULTURES, IV ROCEPHIN WAS INCREASED TO 2 GRAMS WITH A CATCH UP DOSE GIVEN. PT RECIEVED 4 GRAMS OF IV MAG THIS AM AND HAD SOME RESULTING BOWEL INCONTINENCE. PT IS CURRENTLY IN BED, CALL LIGHT IN REACH NO S&S OF DISTRESS NOTED.
[2024-08-23 19:19] VITALS: BP 138/80
[2024-08-23] MEDS ORDERED: Atorvastatin 10 MG Tab PO SCH (21:00)
[2024-08-23] MEDS ORDERED: Melatonin 5 MG Tablet PO PRN (21:25)
[2024-08-24 03:10] VITALS: BP 156/97
--- NOTE | 2024-08-24 05:29 | NUR ---
SHIFT SUMMARY: Pt is admitted for sepsis and is a full code. Is alert and able to make needs known. ADLs have been SBA. denies pain or discomfort when asked. Stated she had some nausea that was treated with PRN zofran.
[2024-08-24 05:43] LABS: BASOPHILS ABSOLUTE AUTO 0.02 K/mm3 (0.00-0.23); BASOPHILS PERCENT AUTO 0 % (0-2); EOSINOPHILS ABSOLUTE AUTO 0.05 K/mm3 (0.00-0.68); EOSINOPHILS PERCENT AUTO 1 % (0-6); Hematocrit 30.6 % (33.0-51.0); Hemoglobin 10.6 g/dL (11.5-16.0); IMMATURE GRAN ABSOLUTE AUTO 0.03 K/mm3 (0.00-0.10); IMMATURE GRAN PERCENT AUTO 0 % (0-1); LYMPHOCYTES ABSOLUTE AUTO 0.85 K/mm3 (0.84-5.20); LYMPHOCYTES PERCENT AUTO 10 % (21-46); MONOCYTES PERCENT AUTO 6 % (4-13); Mean Corpuscular HGB 30.5 pg (26.0-34.0); Mean Corpuscular HGB Conc 34.6 g/dL (31.5-36.5); Mean Corpuscular Volume 88 fL (80-100); Mean Platelet Volume 9.1 fL (9.1-12.4); NEUTROPHILS ABSOLUTE AUTO 6.77 K/mm3 (1.96-9.15); NEUTROPHILS PERCENT AUTO 82 % (41-73); Platelet Count 126 K/mm3 (150-400); RDW Coefficient Variation 13.2 % (11.7-14.2); RDW Standard Deviation 42.4 fL (35.1-46.3); Red Blood Cell Count 3.47 M/mm3 (3.80-5.20); White Blood Cell Count 8.22 K/mm3 (4.00-11.30)
[2024-08-24 06:23] LABS: Bun/Creatinine Ratio 11.1 (12.0-20.0); Calcium, Blood 8.2 mg/dL (8.5-10.1); Creatinine, Blood 0.99 mg/dL (0.40-1.00); Potassium, Blood 3.6 mmol/L (3.5-5.5)
[2024-08-24 07:23] VITALS: BP 150/89
[2024-08-24] MEDS ORDERED: CefTRIAXone Sodium 2,000 MG in NS 100 ML IV SCH (09:00)
[2024-08-24 16:26] VITALS: BP 148/85
[2024-08-24 19:18] VITALS: BP 141/90
--- NOTE | 2024-08-24 20:30 | NUR ---
SHIFT SUMMARY- PT ALERT, ORIENTED, INDEPENDENT IN THE ROOM. PT IN BED CALL LIGHT IN REACH AT THE TYIME OF BEDSIDE REPORT PT C/O FEELING NAUSEATED AT THE TIME OF BEDSIDE REPORT. NIGHT RN MEDICATED AT THAT TIME. NO S&S OF DISTRESS NOTED, SHE DID MENTION THAT THIS EVENINGN HER RIGHT SIDE OF HER NECK FEELS SWOLLEN. NO OBVIOUS SIGNS OF SWELLING NOTED AT THE TIME OF REPORT. NIGHT RN IS AWARE OF THE PT C/O SWELLING.
--- NOTE | 2024-08-25 01:34 | NUR ---
APPROXIMATELY 0120, THIS LEATHER CARTRIDGE BELT MAKER SPOKE OVER THE PHONE WITH THE ON-CALL HOSPITALIST DR. BENNETT REGARDING PT C/O VAGINAL ITCHING AND LOWER ABDOMINAL SKIN RASH/REDDNESS. PT ALSO C/O WELL REDNESS AROUND THE GROIN AND UNDER THE BREASTS (MILD). PT REPORTS ASSUMING VAGINAL YEAST INFECTION. PT USING MICONAZOLE POWDER WITH POOR EFFECTIVNESS FOR MILD SKIN REDDNESS. PER CONVERSTATION WITH DR. BENNETT, AND A T-ORDER, THIS LEATHER CARTRIDGE BELT MAKER CONTACTED PHARMACY TO GET A RECOMMENDATION, WHICH MEDICATION IS CURRENTLY AVAILABLE. PER PHARMACY RECOMMENDATION: FLUCONAZOLE PO 150MG ONE TABLET X1. WILL ENTER TO [employer] THIS TELEPHONE ORDER.
[2024-08-25] MEDS ORDERED: Fluconazole 100 MG Tab PO ONE ×2 (01:45→05:15)
--- NOTE | 2024-08-25 04:06 | NUR ---
SHIFT SUMMARY NO ACUTE EVENTS DURING THIS SHIFT. PT'S BY THE BEDSIDE T/O THIS SHIFT. PT IS A/O X4, ABLE TO MAKE HER NEEDS KNOWN AND COOPERATIVE WITH CARE. PT REFUSED HS SCHEDULED LOVENOX. PT DENIES PAIN AND DISCOMFORT AT HS. RESTING WELL T/O THE NIGHT HRS, VSS. PT REPORTS HAVING VAGINAL YEAST WITH ITCHING, REQUESTING PO MEDICATION TO TREAT IT. REDDENED RASH AROUND GROIN, PANUS, AND UNDER THE BREASTS NOTED. MICONAZOLE NOT EFFECTIVE PER PT REPORT. NEW ORDER FOR FLUTICASONE 150MG PO X1 RECEIVED FROM THE ON-CALL HOSPITALIST DR. BENNETT. DID NOT ADMINISTER OF YET D/T PT RESTING COMFORTABLY. BED AT THE LOWEST POSITION, CALL LIGHT W/I REACH.
--- NOTE | 2024-08-25 04:15 | NUR ---
SHIFT SUMMARY NO ACUTE CHANGES/EVENTS DURING THIS SHIFT. PT IS A/O X4, ABLE TO MAKE HER NEEDS KNOWN AND COOPERATIVE WITH CARE. PT C/O N/V @HS. MEDICATED WITH PRN IV ZOFRAN WITH GOOD EFFECTIVNESS. MEDICATED FOR C/O NECK AND BACK PAIN PER EMAR. BED AT THE LOWEST POSITION, CALL LIGHT W/I REACH.
[2024-08-25 04:18] VITALS: BP 136/87
[2024-08-25 05:31] LABS: BASOPHILS ABSOLUTE AUTO 0.03 K/mm3 (0.00-0.23); BASOPHILS PERCENT AUTO 1 % (0-2); EOSINOPHILS ABSOLUTE AUTO 0.21 K/mm3 (0.00-0.68); EOSINOPHILS PERCENT AUTO 5 % (0-6); Hematocrit 28.8 % (33.0-51.0); Hemoglobin 9.8 g/dL (11.5-16.0); IMMATURE GRAN ABSOLUTE AUTO 0.01 K/mm3 (0.00-0.10); IMMATURE GRAN PERCENT AUTO 0 % (0-1); LYMPHOCYTES ABSOLUTE AUTO 1.03 K/mm3 (0.84-5.20); LYMPHOCYTES PERCENT AUTO 22 % (21-46); MONOCYTES ABSOLUTE AUTO 0.44 K/mm3 (0.16-1.47); MONOCYTES PERCENT AUTO 10 % (4-13); Mean Corpuscular HGB 30.2 pg (26.0-34.0); Mean Corpuscular Volume 89 fL (80-100); Mean Platelet Volume 9.2 fL (9.1-12.4); NEUTROPHILS PERCENT AUTO 63 % (41-73); Platelet Count 141 K/mm3 (150-400); RDW Coefficient Variation 13.2 % (11.7-14.2); RDW Standard Deviation 43.4 fL (35.1-46.3); Red Blood Cell Count 3.24 M/mm3 (3.80-5.20); White Blood Cell Count 4.62 K/mm3 (4.00-11.30)
[2024-08-25 05:57] LABS: Bun/Creatinine Ratio 12.2 (12.0-20.0); Calcium, Blood 8.1 mg/dL (8.5-10.1); Creatinine, Blood 0.9 mg/dL (0.40-1.00); Potassium, Blood 3.8 mmol/L (3.5-5.5)
[2024-08-25 07:48] VITALS: BP 149/83
[2024-08-25] MEDS ORDERED: Lisinopril 10 MG Tab PO SCH (09:00)
[2024-08-25 15:46] VITALS: BP 143/74
--- NOTE | 2024-08-25 16:59 | NUR ---
SHIFT SUMMARY: PATIENT A/OX4, PLEASANT AND COOPERATIVE c CARE. PATIENT DENIES CP/PRESSURE, SOB AND DIZZINESS. PATIENT REPORTS HEADACHE AND CHRONIC BACK PAIN, MEDICATED FOR PAIN PER EMAR c MOD EFFECT. PATIENT REPORTS NAUSEOUS AND OT EPISODE OF UNMEASURED VOMITING, MEDICATED c ZOFRAN X3 THIS SHIFT. PATIENT ALSO REPORTS LAST GOOD BM WAS ON ADMISSION. PATIENT STARTED ON BOWEL CARE TODAY PER ORDER c NO RESULT, SO FAR THIS SHIFT. PATIENT RECEIVED IV ABX/SCHEDULED MEDS PER EMAR. PATIENT HAS FAIR APPETITE, CONTINENT OF BLADDER, AMBULATES TO BATHROOM c SBA. VITAL SIGNS REVIEWED. BED IN LOWEST POSITIONED. CALL LIGHT IN REACH.
[2024-08-25] MEDS ORDERED: Docusate Sodium/Senna 1 Tab PO SCH (17:00)
[2024-08-25 19:17] VITALS: BP 154/84
--- NOTE | 2024-08-26 01:22 | NUR ---
NEW T-ORDER FROM THE ON-CALL HOSPITALIST DR. BENNETT: MIRALAX PO 17GM QD PRN. ENTERED TO [facility], SEE EMAR. NO ADDITIONAL NEW ORDERS AT THIS TIME.
[2024-08-26] MEDS ORDERED: Polyethylene Glycol 3350 17 gm PO PRN (01:25)
--- NOTE | 2024-08-26 02:53 | NUR ---
SHIFT SUMMARY NO ACUTE EVENTS DURING THIS SHIFT. C/O N/V @HS. MEDICATED WITH PRN IV ZOFRAN WITH GOOD EFFECTIVNESS. PT C/O CHRONIC BACK PAIN, MEDICATED PER EMAR X2 DURING THIS SHIFT. NEW ORDER FOR MIRALAX PO QD PRN RECEIVED FROM THE ON-CALL HOSPITALIST. PT REPORTS LAST BM>3 DAYS AGO. BED AT THE LOWEST POSITION, CALL LIGHT W/I REACH. PT IS A/O X4, PLEASANT AND COOPERATIVE WITH CARE. PT IS ABLE TO MAKE HER NEEDS KNOWN.
[2024-08-26 03:27] VITALS: BP 137/78
[2024-08-26 04:48] LABS: BASOPHILS ABSOLUTE AUTO 0.04 K/mm3 (0.00-0.23); BASOPHILS PERCENT AUTO 1 % (0-2); EOSINOPHILS ABSOLUTE AUTO 0.28 K/mm3 (0.00-0.68); EOSINOPHILS PERCENT AUTO 6 % (0-6); Hematocrit 28.6 % (33.0-51.0); Hemoglobin 9.7 g/dL (11.5-16.0); IMMATURE GRAN ABSOLUTE AUTO 0.01 K/mm3 (0.00-0.10); IMMATURE GRAN PERCENT AUTO 0 % (0-1); LYMPHOCYTES ABSOLUTE AUTO 1.35 K/mm3 (0.84-5.20); LYMPHOCYTES PERCENT AUTO 30 % (21-46); MONOCYTES ABSOLUTE AUTO 0.49 K/mm3 (0.16-1.47); MONOCYTES PERCENT AUTO 11 % (4-13); Mean Corpuscular HGB 30.2 pg (26.0-34.0); Mean Corpuscular HGB Conc 33.9 g/dL (31.5-36.5); Mean Corpuscular Volume 89 fL (80-100); Mean Platelet Volume 8.8 fL (9.1-12.4); NEUTROPHILS ABSOLUTE AUTO 2.31 K/mm3 (1.96-9.15); NEUTROPHILS PERCENT AUTO 52 % (41-73); Platelet Count 124 K/mm3 (150-400); RDW Coefficient Variation 13.1 % (11.7-14.2); RDW Standard Deviation 42.6 fL (35.1-46.3); Red Blood Cell Count 3.21 M/mm3 (3.80-5.20); White Blood Cell Count 4.48 K/mm3 (4.00-11.30)
[2024-08-26 05:08] LABS: Calcium, Blood 8.5 mg/dL (8.5-10.1); Creatinine, Blood 0.9 mg/dL (0.40-1.00); Potassium, Blood 3.6 mmol/L (3.5-5.5)
[2024-08-26 07:46] VITALS: BP 137/74
[2024-08-26 08:15] VITALS: BP 142/87
[2024-08-26] MEDS ORDERED: Polyethylene Glycol 3350 17 gm PO SCH (09:00)
[2024-08-26 16:17] VITALS: BP 144/77
--- NOTE | 2024-08-26 17:16 | NUR ---
SHIFT SUMMARY PT IS A/OX4. INDEPENDENT IN THE ROOM. NO ACUTE CHANGES THROUGHOUT THIS SHIFT. PT ABLE TO HAVE A BM THIS AFTERNOON. PT CONTINUES TO REPORT NAUSEA THROUGHOUT THIS SHIFT WITH SMALL AMOUNTS OF VOMITTING THIS MORNING, MEDICATED WITH ZOFRAN PER AUG. OXYCODONE GIVEN FOR CHRONIC BACK AND NACK PAIN PER AUG. CONTINUOUS NS RUNNING @ 100 ML/HR.
[2024-08-26 20:22] VITALS: BP 148/79
[2024-08-27 03:49] VITALS: BP 174/93
[2024-08-27 05:00] VITALS: BP 170/93
[2024-08-27 05:50] LABS: Hematocrit 30.9 % (33.0-51.0); Mean Corpuscular HGB 30.7 pg (26.0-34.0); Mean Corpuscular HGB Conc 35.6 g/dL (31.5-36.5); Mean Corpuscular Volume 86 fL (80-100); Mean Platelet Volume 9.3 fL (9.1-12.4); Platelet Count 161 K/mm3 (150-400); RDW Standard Deviation 41.1 fL (35.1-46.3); Red Blood Cell Count 3.58 M/mm3 (3.80-5.20); White Blood Cell Count 6.91 K/mm3 (4.00-11.30)
--- NOTE | 2024-08-27 05:56 | NUR ---
AAOX4. INDEPENDENT IN ROOM. RA. EPISODE OF WAKING UP SOB, ASSISTED TO POC IN BED AND HOB ELEVATED. PT WAS ABLE TO GO BACK TO SLEEP WITHOUT C/O. PLAN TO DC HOME 08/27/24.
[2024-08-27 06:23] LABS: Bun/Creatinine Ratio 12.7 (12.0-20.0); Calcium, Blood 8.7 mg/dL (8.5-10.1); Creatinine, Blood 0.87 mg/dL (0.40-1.00); Potassium, Blood 3.4 mmol/L (3.5-5.5)
[2024-08-27 07:23] VITALS: BP 153/97
[2024-08-27] MEDS ORDERED: CIPR500 PO (11:44)
[2024-08-27] MEDS ORDERED: LACT PO (11:44)
--- NOTE | 2024-08-27 11:51 | NUR ---
DISCHARGED TO HOME. PT REQUESTS SHE AMBULATE OUT OF HOSPITAL, STEADY ON FEET. PT VERBALIZES UNDERSTANDING OF DISCHARGE INSTRUCTIONS. DISCHARGE INSTRUCTIONS PROVIDED TO PATIENT
== END 2024-08-27 11:51 | disposition home or self-care (01) | DRG 872 ==
LOC: ER 16:29 → MEDS 21:23 → ERHOLD 21:23 → MEDS 22:40
PROVIDERS: Family Medicine; Registered Nurse; Student in an Organized Health Care Education/Training Program; ADMIT Student in an Organized Health Care Education/Training Program
DX: A41.51 Sepsis due to Escherichia coli [E. coli] (principal); N10 Acute pyelonephritis; N17.9 Acute kidney failure, unspecified; K57.32 Diverticulitis of large intestine without perforation or abscess without bleeding; R65.20 Severe sepsis without septic shock; F41.9 Anxiety disorder, unspecified; E86.0 Dehydration; F32.A Depression, unspecified; E11.9 Type 2 diabetes mellitus without complications; M19.90 Unspecified osteoarthritis, unspecified site; G89.29 Other chronic pain; M54.9 Dorsalgia, unspecified; I10 Essential (primary) hypertension; D64.9 Anemia, unspecified; R51.9 Headache, unspecified; D69.6 Thrombocytopenia, unspecified; E78.5 Hyperlipidemia, unspecified; E83.42 Hypomagnesemia; K21.9 Gastro-esophageal reflux disease without esophagitis; K59.00 Constipation, unspecified; Z86.73 Personal history of transient ischemic attack (TIA), and cerebral infarction without residual deficits; Z88.0 Allergy status to penicillin; Z79.899 Other long term (current) drug therapy; Z79.84 Long term (current) use of oral hypoglycemic drugs; Z90.49 Acquired absence of other specified parts of digestive tract; Z98.890 Other specified postprocedural states
CPT/HCPCS: 0241U; 36415; 51702; 51798; 70450; 74177; 80048; 80053; 81001; 83605; 83735; 84484; 85025; 85027; 87040; 87077; 87086; 87186; 93005; 93010; 96361-59; 96374-59; 96375-59; 99285-25; A9270; J0696; J0744; J0780; J1200; J1650; J2405; J3475; J7030; Q9967